=== PATIENT | female | born 1990 | race Caucasian/White ===

== ENCOUNTER 2016-06-10 14:50 | Outpatient (CLI) | payer OTHER ==
--- NOTE | 2016-06-10 18:18 | DIAGNOSTIC IMAGING REPORT ---
PROCEDURE: US OB 1ST TRIMESTER W/TRANSVAG INDICATION: VIABILITY,EVAL FOR ECTOPIC TECHNIQUE: Loza scale, color, and spectral Doppler transabdominal and endovaginal sonographic images of the first trimester gravid uterus were obtained. COMPARISON: None. FINDINGS: TRANSABDOMINAL SCANS: The gravid uterus is retroverted in position and contains a fundal gestational sac with a moderate decidual response. No perigestational hemorrhage. The cervix is closed. parts are identified. [place]-rump length is 32.6 mm corresponding to a 73-hjgf-5-day gestation. heart rate is 171 beats per minute. Maternal right ovary appears normal. The left was not seen. No adnexal masses. TRANSVAGINAL SCANS: The cervix is closed measuring about 5.2 cm in length. 02-jhjq-0-day pole is present. Normal-appearing yolk sac and partially fused amnion are visible. No perigestational hemorrhage. Both maternal ovaries are identified and appear normal. No free pelvic fluid. IMPRESSION: 1. Single living intrauterine in a retroverted uterus with gestational age of 10 weeks 1 day and estimated due date of 01/05/2017. 2. Closed cervix and no perigestational hemorrhage. 3. Normal maternal adnexa. No evidence of mass or fluid. 4. Findings called to Dr. Zaidi.
--- NOTE | 2016-06-10 18:18 | DIAGNOSTIC IMAGING REPORT ---
PROCEDURE: US OB 1ST TRIMESTER W/TRANSVAG INDICATION: VIABILITY,EVAL FOR ECTOPIC TECHNIQUE: Loza scale, color, and spectral Doppler transabdominal and endovaginal sonographic images of the first trimester gravid uterus were obtained. COMPARISON: None. FINDINGS: TRANSABDOMINAL SCANS: The gravid uterus is retroverted in position and contains a fundal gestational sac with a moderate decidual response. No perigestational hemorrhage. The cervix is closed. parts are identified. [place]-rump length is 32.6 mm corresponding to a 13-mqzr-0-day gestation. heart rate is 171 beats per minute. Maternal right ovary appears normal. The left was not seen. No adnexal masses. TRANSVAGINAL SCANS: The cervix is closed measuring about 5.2 cm in length. 41-jdmq-0-day pole is present. Normal-appearing yolk sac and partially fused amnion are visible. No perigestational hemorrhage. Both maternal ovaries are identified and appear normal. No free pelvic fluid. IMPRESSION: 1. Single living intrauterine in a retroverted uterus with gestational age of 10 weeks 1 day and estimated due date of 01/05/2017. 2. Closed cervix and no perigestational hemorrhage. 3. Normal maternal adnexa. No evidence of mass or fluid. 4. Findings called to Dr. Zaidi.
== END 2016-06-10 23:00 ==
LOC: US SRH 14:50 → LAB SRH 14:50
DX: N91.2 Amenorrhea, unspecified (principal)
CPT/HCPCS: 90004; 90074; 90078; 90261; 90364; 90599; 90600; 90605; 90606; 90851; 91227; 91228; 92863; 98480; 99777